=== PATIENT | female | born 1990 | race African-American/Black ===

== ENCOUNTER 2018-08-01 21:13 | Emergency (ER) | payer MEDICAID ==
[~2018-08-01] VITALS: Ht 165.1 cm; Wt 81.6 kg
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
[2018-08-01] MEDS ORDERED: CYCLOBENZAPRINE10 MG ORAL (22:31)
--- NOTE | 2018-08-01 22:31 | Emergency Room Report ---
History of Present Illness General Chief Complaint: Back Injury Source: Patient Present Illness HPI Been taking ibuprofen without much relief.28-year-old female presented after increased low back pain. Patient reports having bilateral back pain which began after living lifting boxes at work. She denies any trauma. She reports having radicular symptoms. She has been urinating normally. She denies any dysuria or hematuria. Patient states she is currently on her menses. She denies having any intercourse. She denies any . Allergies: Coded Allergies: No Known Allergies (Unverified , 08/01/18) Patient History Past Medical History: see triage record Last Menstrual Period: now Now: No Reviewed Nursing Documentation: PMH: Agreed; PSxH: Agreed Nursing Documentation-PMH Hx Hypertension: Yes Review of Systems All Other Systems: negative except mentioned in HPI Physical Exam Vital Signs Date Time Temp Pulse Resp B/P (MAP) Pulse Ox O2 Delivery O2 Flow Rate FiO2 08/01/18 22:09 98.4 86 20 104/78 98 Room Air General Appearance: well appearing, no apparent distress, alert, GCS 15 Head: normocephalic, atraumatic ENT: hearing grossly normal, normal voice Neck: full range of motion, supple Respiratory: lungs clear, no respiratory distress, speaking full sentences Cardiovascular #1: normal inspection Gastrointestinal: normal inspection Musculoskeletal: normal inspection, back normal, digits/nails normal, decreased range of mation - back with muscle spasm Neurologic: normal inspection, alert, oriented x3, responsive, normal gait Psychiatric: mood/affect normal Skin: no rash Medical Decision Making Diagnostic Impression: Primary Impression: Muscle strain ER Course Patient presented for back pain. Differential diagnosis included but was not limited to herniated disc, cauda equina syndrome, abdominal aortic aneurysm, perforated ulcer, spinal epidural abscess, spinal stenosis, lumbar fracture, metastatic lesion, pyelonephritis. Patient has a benign exam and does not appear to require any further imaging or laboratory testing at this time. Patient given prescription for muscle relaxants. She is advised to continue on nonsteroidal anti-inflammatory medications. She is advised to return if she began having fever worsening pain and numbness or weakness or other concerns. Last Vital Signs Date Time Temp Pulse Resp B/P (MAP) Pulse Ox O2 Delivery O2 Flow Rate FiO2 08/01/18 22:09 98.4 86 20 104/78 98 Room Air Status: improved Disposition: HOME, SELF-CARE Condition: Stable Will Nunez MD Aug 01, 2018 22:31
[2018-08-01 22:38] VITALS: BP 104/78
[2018-08-01] MEDS ORDERED: Ketorolac 60mg Inj IM ONE (22:45)
[2018-08-01 22:52] VITALS: BP 110/78
--- NOTE | 2018-08-01 22:53 | NUR ---
ER DISCHARGE NOTE: Patient is cleared to be discharged per ERMD, pt is aox4, on room air, with stable vital signs. pt was given dc and prescription instructions, pt was able to verbalize understanding, pt id band removed without complications. pt is able to ambulate with steady gait. pt took all belongings.
[2018-08-01 23:07] LABS: APPEARANCE,URINE VERY CLOUDY; BILIRUBIN, URINE NEGATIVE (NEGATIVE); COLOR,URINE PALE YELLOW; GLUCOSE, URINE (UA) NEGATIVE (NEGATIVE); KETONES,URINE NEGATIVE (NEGATIVE); LEUKOCYTE ESTERASE ,URINE NEGATIVE (NEGATIVE); NITRITE,URINE NEGATIVE (NEGATIVE); PH,URINE 8 (4.5-8.0); PROTEIN,URINE NEGATIVE (NEGATIVE); UROBILINOGEN,URINE NORMAL MG/DL (0.0-1.0)
== END 2018-08-01 22:58 | disposition home or self-care (01) ==
LOC: EMR 22:52
DX: S39.012A Strain of muscle, fascia and tendon of lower back, initial encounter (principal); X50.0XXA Overexertion from strenuous movement or load, initial encounter; Y92.89 Other specified places as the place of occurrence of the external cause; I10 Essential (primary) hypertension
CPT/HCPCS: 81003; 81025; 87086; 96372; 99283

== ENCOUNTER 2018-09-10 19:09 | Emergency (ER) | payer MEDICAID, OTHER ==
[~2018-09-10] VITALS: Ht 167.6 cm; Wt 81.6 kg
[~2018-09-10 19:09] MED LIST: CYCLOBENZAPRINE10 MG ORAL
[2018-09-10] MEDS ORDERED: NKM (19:24)
--- NOTE | 2018-09-10 19:30 | NUR ---
ED Nurse Note: Patient walked int oED c/o right knee pain, state that she slipped and fell at work, complains of 8/10 right knee pain, patietn is alert and oriented x4, ambulatory with a steady gait, VSS, patient denies any trauma
[2018-09-10] MEDS ORDERED: HYDROcodone/Acetamin 5/325 tab ORAL ONE (20:00)
--- NOTE | 2018-09-10 20:33 | Emergency Room Report ---
History of Present Illness General Chief Complaint: Lower Extremity Injury Source: Patient Present Illness HPI 28-year-old female presents to the emergency department complaining of 8 out of 10 in severity pain in the right knee as well as acute rectal pain status post mechanical trip and fall while at work. Patient reports that in the process of falling she attempted to grab a hold of a keg to stop her fall and believes that this may have caused some straining. Patient reports acute onset of rectal pain with some bright red blood per rectum. Patient denies hitting her head she denies loss of consciousness. Patient denies midline neck or back pain. Patient reports that she is able to minimally ambulate however walking and bending of the right knee exacerbates her pain. Patient denies having any relieving factors. Patient denies history of hemorrhoids. Denies constipation , diarrhea or abdominal pain. Denies numbness tingling or loss of sensation or gross motor movements of the extremities, incontinence of bowel or bladder. Denies CP, Palpitations, LOC, AMS, dizziness, Changes in Vision, weakness or a sudden severe headache. Denies hx of GI bleed or melena. Allergies: Coded Allergies: No Known Allergies (Unverified , 08/01/18) Patient History Past Medical History: see triage record Past Surgical History: none Pertinent Family History: none Last Menstrual Period: 08/25/2018 Now: No Reviewed Nursing Documentation: PMH: Agreed; PSxH: Agreed Nursing Documentation-PMH Past Medical History: No History, Except For Hx Hypertension: Yes Review of Systems All Other Systems: negative except mentioned in HPI Physical Exam Vital Signs Date Time Temp Pulse Resp B/P (MAP) Pulse Ox O2 Delivery O2 Flow Rate FiO2 09/10/18 19:21 98.6 123 16 158/105 99 Room Air Sp02 EP Interpretation: reviewed, normal General Appearance: alert, GCS 15, non-toxic, moderate distress Head: normocephalic, atraumatic Eyes: bilateral eye normal inspection, bilateral eye PERRL ENT: hearing grossly normal, normal voice Neck: full range of motion Respiratory: chest non-tender, lungs clear, normal breath sounds, speaking full sentences Cardiovascular #1: regular rate, rhythm, normal capillary refill Cardiovascular #2: 2+ dorsalis pedis (R) - post tibial. Rectal: hemorrhoids - bleeding hemorrhoid in the 12 o 'clock position. Musculoskeletal: back normal, gait/station normal - compensatory gait favoring right leg. , normal range of motion, tender - TTP to the anterior right knee, no increased laxity, some palpable swelling, no bruising, open wounds or obvious deformity noted. negative anterior drawer sign. Neurologic: alert, oriented x3, responsive, motor strength/tone normal, sensory intact, speech normal, grossly normal Psychiatric: judgement/insight normal Skin: normal color, no rash, warm/dry, well hydrated Medical Decision Making PA Attestation Dr. Cruz is my supervising Physician whom patient management has been discussed with. Diagnostic Impression: Primary Impression: Right knee sprain Qualified Codes: S83.91XA - Sprain of unspecified site of right knee, initial encounter Additional Impression: Hemorrhoid Qualified Codes: K64.9 - Unspecified hemorrhoids ER Course 28-year-old female presents to the emergency department complaining of 8 out of 10 in severity pain in the right knee as well as acute rectal pain status post mechanical trip and fall while at work. Patient reports that in the process of falling she attempted to grab a hold of a keg to stop her fall and believes that this may have caused some straining. Patient reports acute onset of rectal pain with some bright red blood per rectum. Patient denies hitting her head she denies loss of consciousness. Patient denies midline neck or back pain. Patient reports that she is able to minimally ambulate however walking and bending of the right knee exacerbates her pain. Patient denies having any relieving factors. Patient denies history of hemorrhoids. Denies constipation , diarrhea or abdominal pain. Denies numbness tingling or loss of sensation or gross motor movements of the extremities, incontinence of bowel or bladder. Denies CP, Palpitations, LOC, AMS, dizziness, Changes in Vision, weakness or a sudden severe headache. Denies hx of GI bleed or melena. Ddx considered but are not limited to Fracture, dislocation, contusion, Sprain/ Strain/Spasm,hemorrhoid, insect bite, cellulitis, abscess Vital signs: are WNL, pt. is afebrile H&PE are most consistent with musculoskeletal injury will perform imaging to r/ o fractures/dislocations. - hemorrhoid also noted with some acute bleeding- small amt. ORDERS: - X-ray Right knee 3 views - negative for fx, Dislocation, or significant soft tissue injury, per preliminary read in ED, and signed by BOOGIE العلي , my supervising physician has reviewed, and agrees with my interpretation. ED INTERVENTIONS: - [place] PO -Jose Elias wrap applied by field service tech. Pt. remains neurovascularly intact. -Patient is provided with crutches and instructed on their use -D/w pt. hemorrhoid management including topical medications and hot sitz baths. -I do not identify an emergent condition at this time. With current presentation , pt. is stable for close outpatient follow up and conservative treatment. D/ w pt. to return promptly to ED with worsening or new symptoms.- Pt. verbalizes' understanding and agreement with proposed treatment plan. DISCHARGE: At this time pt. is stable for d/c to home. Will provide printed patient care instructions, and any necessary prescriptions. Care plan and follow up instructions have been discussed with the patient prior to discharge. Other X-Ray Diagnostic Results Other X-Ray Diagnostic Results : X-Ray ordered: Right knee # of Views/Limited Vs Complete: 3 View Indication: Pain EP Interpretation: Yes BOOGIE Xray: Interpretation reviewed, by supervising MD, and agrees with findings. Interpretation: no dislocation, no soft tissue swelling, no fractures Impression: No acute disease Electronically Signed by: Pamella العلي PA-C Last Vital Signs Date Time Temp Pulse Resp B/P (MAP) Pulse Ox O2 Delivery O2 Flow Rate FiO2 09/10/18 19:21 98.6 123 16 158/105 99 Room Air Status: improved Disposition: HOME, SELF-CARE Condition: Stable Scripts Docusate Sodium* (COLACE*) 100 Mg Capsule 100 MG ORAL THREE TIMES A DAY, #30 CAP Prov: Pamella العلي 09/10/18 Ibuprofen* (MOTRIN*) 600 Mg Tablet 600 MG ORAL THREE TIMES A DAY, #30 TAB 0 Refills Prov: Pamella العلي 09/10/18 Lidocaine (Lidocaine) 5 Gm Cream..g. 1 APPLIC TP Q6HR for pain, #5 GM Prov: Pamella العلي 09/10/18 Hydrocortisone Hc 2.5% Cream (ANUSOL-HC 2.5% CREAM) Y Cr 1 APPLIC RC Q6HR, #30 GM Prov: Pamella العلي 09/10/18 Referrals: NOT CHOSEN [facility]/,REFERRING (PCP) Departure Forms: Return to Work Return to Work Date: Sep 14, 2018 Work Restrictions: No Heavy Lifting, No Prolonged Standing Other Restrictions: May return Sooner if Symptoms have resolved. Return to Full Activity: Sep 17, 2018 Patient Instructions: Hemorrhoids, [id number] Additional Instructions: Take medications as directed. Follow up with a Primary Care Provider in 3-5 days, even if your symptoms have resolved. --Please review list of primary care clinics, if you do not already have a primary care provider Return sooner to ED if new symptoms occur, or current symptoms become worse. - Please note that this Emergency Department Report was dictated using [employer] hand technology software, occasionally this can lead to erroneous entry secondary to interpretation by the dictation equipment. Pamella العلي Sep 10, 2018 20:33
[2018-09-10 20:35] VITALS: BP 138/85
[2018-09-10] MEDS ORDERED: COLACE100 MG ORAL (20:35)
[2018-09-10] MEDS ORDERED: ANUSOL-HC30 GM RC (20:35)
[2018-09-10] MEDS ORDERED: LIDOCAINE5 GM TP (20:35)
[2018-09-10] MEDS ORDERED: IBUPROFEN600 MG ORAL (20:35)
--- NOTE | 2018-09-11 12:51 | Diagnostic Imaging Report ---
Indication: Right knee pain Technique: 3 views of the right knee Comparison: None Findings: No acute fractures. No dislocations. The joint spaces are preserved Impression: Negative
== END 2018-09-10 20:35 | disposition home or self-care (01) ==
LOC: EMR 20:16
DX: S83.91XA Sprain of unspecified site of right knee, initial encounter (principal); K64.9 Unspecified hemorrhoids; I10 Essential (primary) hypertension; W01.0XXA Fall on same level from slipping, tripping and stumbling without subsequent striking against object, initial encounter; Y92.9 Unspecified place or not applicable; Y99.0 Civilian activity done for income or pay
CPT/HCPCS: 99283

== ENCOUNTER 2018-10-16 11:59 | Emergency (ER) | payer MEDICAID, OTHER ==
[~2018-10-16] VITALS: Ht 167.6 cm; Wt 81.6 kg
[~2018-10-16 11:59] MED LIST changes: +ANUSOL-HC30 GM RC; +COLACE100 MG ORAL; +IBUPROFEN600 MG ORAL; +LIDOCAINE5 GM TP; +NKM
--- NOTE | 2018-10-16 12:18 | NUR ---
ED Nurse Note: PT FROM HOME CAME IN DUE TO ABD.PAIN WITH N/V/D STARTED 2 DAYS AGO. PT ALSO REPORTS DECREASED APPETITE AND BEING UNABLE TO TOLERATE FOOD INTAKE AND TAKE SMALL SIPS OF WATER. PT IS AAO X4, AMBULATORY WITH NON LABORED BREATHING.
[2018-10-16] MEDS ORDERED: Dicyclomine HCl 10mg/5ml oral soln ORAL ONE (12:45)
[2018-10-16] MEDS ORDERED: DICYCLOMINE HCL10 MG ORAL (12:59)
[2018-10-16] MEDS ORDERED: ZOFRAN4 MG ORAL (12:59)
--- NOTE | 2018-10-16 13:01 | NUR ---
ED Nurse Note: PT LAYING PEACEFULLY IN BED IN NAD. AOX4. PRESCRIPTIONS AND DISCHARGE PAPERWORK EXPLAINED TO PT. PT VERBALIZES UNDERSTANDING AND ALL QUESTIONS ANSWERED. PRESCRIPTIONS SENT ELECTRONICALLY. DISCHARGE PAPERWORK GIVEN TO PT AND ID WRISTBAND REMOVED. PT WALKED OUT OF ER WITH STEADY GAIT AND ALL BELONGINGS.
[2018-10-16 13:02] VITALS: BP 126/82
--- NOTE | 2018-10-17 15:19 | Emergency Room Report ---
History of Present Illness General Chief Complaint: Nausea, Vomiting, and Diarrhea Source: Patient Present Illness HPI Patient is a 28-year-old female presented after increased nausea vomiting and diarrhea. Patient had onset of symptoms approximate 2 days ago. She reports having generalized abdominal discomfort. She denies being . She states is currently on her menses. She reports having multiple episodes of nonbilious, nonbloody vomiting. She had not been having any fever.Patient denies any dizziness or lightheadedness. She denies any recent travel. 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 She denies any localized abdominal pain. Allergies: Coded Allergies: No Known Allergies (Unverified , 10/16/18) Patient History Past Medical History: see triage record Last Menstrual Period: 10/09/18 Now: No Reviewed Nursing Documentation: PMH: Agreed; PSxH: Agreed Nursing Documentation-PMH Past Medical History: No Stated History Hx Hypertension: Yes Review of Systems All Other Systems: negative except mentioned in HPI Physical Exam Vital Signs Date Time Temp Pulse Resp B/P (MAP) Pulse Ox O2 Delivery O2 Flow Rate FiO2 10/16/18 12:08 98.2 104 16 132/85 (101) 98 Room Air Sp02 EP Interpretation: reviewed, normal General Appearance: normal inspection, well appearing, no apparent distress, alert, GCS 15 Head: atraumatic ENT: normal ENT inspection, hearing grossly normal, normal voice Neck: normal inspection, full range of motion, supple, no bony tend Respiratory: normal inspection, lungs clear, normal breath sounds, no respiratory distress, no retraction, no wheezing Cardiovascular #1: regular rate, rhythm, no edema Gastrointestinal: normal inspection, normal bowel sounds, non tender, soft, no guarding, no hernia Genitourinary: no CVA tenderness Musculoskeletal: normal inspection, back normal, normal range of motion Neurologic: normal inspection, alert, oriented x3, responsive, science writer III-XII nml as tested, speech normal Psychiatric: normal inspection, judgement/insight normal, mood/affect normal Skin: normal inspection, normal color, no rash Medical Decision Making Diagnostic Impression: Primary Impression: Gastroenteritis ER Course Patient presented for vomiting and diarrhea. Differential diagnosis include was not limited to gastroenteritis, food poisoning, bowel obstruction among others. Patient has a benign exam and does not appear to require any further imaging or laboratory testing at this time patient noted to have a benign abdominal exam without any focal tenderness.. She was given Zofran with improvement her symptoms. Patient states she felt better and wanted to go home. Patient was able to tolerate oral fluids. Patient is advised to recheck with her primary care physician for reevaluation. She is advised to remain off work for 2 days. Last Vital Signs Date Time Temp Pulse Resp B/P (MAP) Pulse Ox O2 Delivery O2 Flow Rate FiO2 10/16/18 13:02 98.3 94 17 126/82 99 Room Air Status: improved Disposition: HOME, SELF-CARE Condition: Stable Scripts Dicyclomine Hcl* (DICYCLOMINE HCL*) 10 Mg Capsule 10 MG ORAL QID, #20 CAP Prov: Will Nunez MD 10/16/18 Ondansetron (Zofran) 4 Mg Tablet 4 MG ORAL Q6H PRN for Nausea & Vomiting, #30 TAB 0 Refills Prov: Will Nunez MD 10/16/18 Referrals: [facility],REFERRING (PCP) Departure Forms: Return to Work Return to Work in (Days): 2 Patient Instructions: Viral Gastroenteritis, Adult Will Nunez MD October 17, 2018 15:19
== END 2018-10-16 13:03 | disposition home or self-care (01) ==
LOC: EMR 12:40
DX: K52.9 Noninfective gastroenteritis and colitis, unspecified (principal); I10 Essential (primary) hypertension
CPT/HCPCS: 99282

== ENCOUNTER 2019-01-10 10:04 | Emergency (ER) | payer MEDICAID ==
[~2019-01-10] VITALS: Ht 165.1 cm; Wt 77.1 kg
[~2019-01-10 10:04] MED LIST changes: +DICYCLOMINE HCL10 MG ORAL; +ZOFRAN4 MG ORAL
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
[2019-01-10 11:05] VITALS: BP 130/88
--- NOTE | 2019-01-10 11:05 | NUR ---
ED Nurse Note: patient walked out of ED with all of her belongings, patient reports that she cannot stay here any longer she needs to go to her work. patient states verbalized understanding that she is leaving ED without Dr's formal discharge, patient left in stable condition. No IV started on the patient. pt is aox4, on room air
--- NOTE | 2019-01-10 11:26 | Diagnostic Imaging Report ---
Indication: Pain and trauma Technique: 3 views of the left knee Comparison: None Findings: No acute fractures. No dislocations. Joint spaces are preserved. Impression: Negative
== END 2019-01-10 12:00 | disposition left against medical advice (07) ==
LOC: EMR 11:10
DX: M25.562 Pain in left knee (principal)
CPT/HCPCS: 99283

== ENCOUNTER 2019-05-13 15:43 | Emergency (ER) | payer SELFPAY ==
[~2019-05-13] VITALS: Ht 167.6 cm; Wt 77.1 kg
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
--- NOTE | 2019-05-13 16:13 | NUR ---
ED Nurse Note: X ray being done at bedside.
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
[2019-05-13 17:41] VITALS: BP 128/80
--- NOTE | 2019-05-13 18:07 | Diagnostic Imaging Report ---
EXAM: XR Left Knee, 3 Views CLINICAL HISTORY: PAIN TECHNIQUE: Three views of the left knee. COMPARISON: No relevant prior studies available. FINDINGS: Bones/joints: No acute fracture or malalignment. Soft tissues: No significant abnormality. IMPRESSION: No acute fracture or malalignment.
== END 2019-05-13 17:41 | disposition home or self-care (01) ==
LOC: EMR 16:05
DX: M25.562 Pain in left knee (principal); I10 Essential (primary) hypertension; Z87.891 Personal history of nicotine dependence
CPT/HCPCS: 99283

== ENCOUNTER 2020-03-02 17:52 | Emergency (ER) | payer SELFPAY ==
[~2020-03-02] VITALS: Ht 165.1 cm; Wt 77.1 kg
--- NOTE | 2020-03-02 18:05 | NUR ---
ED Nurse Note: Patient from home and walked in to ER due to feeling of fatigue, muscle aches, diarrhea and skin itching for a couple of weeks. States coughing is getting better. Pt also c/o burning sensation when urinating. Pt tested negative for covid less than 2 weeks. Patient presented calm, denyed any drug use, VSS at this time.
--- NOTE | 2020-03-02 18:08 | NUR ---
ED Nurse Note: IV line was established on left forearm 20 ga, blood and urine specimen sent to lab
[2020-03-02 18:10] VITALS: BP 140/88
[2020-03-02 18:49] LABS: EOSINOPHILS % (AUTO) 2.2 % (0.0-3.0); HEMATOCRIT 34.8 % (37.0-47.0); HEMOGLOBIN 10.5 G/DL (12.0-16.0); LYMPHOCYTES % (AUTO) 46.8 % (20.0-45.0); MEAN CORPUSCULAR VOLUME 67 FL (80-99); MONOCYTES % (AUTO) 11.5 % (1.0-10.0); NEUTROPHILS % (AUTO) 38.5 % (45.0-75.0); PLATELET COUNT 310 K/UL (150-450); RED BLOOD COUNT 5.17 M/UL (4.20-5.40); RED CELL DISTRIBUTION WIDTH 16.5 % (11.6-14.8); WHITE BLOOD COUNT 3.9 K/UL (4.8-10.8)
[2020-03-02 18:51] LABS: BILIRUBIN, URINE NEGATIVE (NEGATIVE); COLOR,URINE PALE YELLOW; GLUCOSE, URINE (UA) NEGATIVE (NEGATIVE); KETONES,URINE NEGATIVE (NEGATIVE); LEUKOCYTE ESTERASE ,URINE NEGATIVE (NEGATIVE); NITRITE,URINE NEGATIVE (NEGATIVE); PH,URINE 5 (4.5-8.0); PROTEIN,URINE NEGATIVE (NEGATIVE); UROBILINOGEN,URINE NORMAL MG/DL (0.0-1.0)
[2020-03-02 18:56] LABS: APPEARANCE,URINE CLEAR
[2020-03-02 19:03] LABS: ANION GAP 11 mmol/L (5-15); BLOOD UREA NITROGEN 12 mg/dL (7-18); CALCIUM 10.5 MG/DL (8.5-10.1); CARBON DIOXIDE 24 MMOL/L (21-32); CHLORIDE 102 MMOL/L (98-107); CREATININE 0.8 MG/DL (0.55-1.30); SODIUM 136 MMOL/L (136-145)
--- NOTE | 2020-03-02 19:05 | NUR ---
ED Nurse Note: Report received from DODIE DELCID Patient alert and awake sitting on the side of bed
[2020-03-02 19:08] LABS: ALANINE AMINOTRANSFERASE 27 U/L (12-78); ALBUMIN 3.6 G/DL (3.4-5.0); ALBUMIN/GLOBULIN RATIO 0.7 (1.0-2.7); ALKALINE PHOSPHATASE 149 U/L (46-116); ASPARTATE AMINO TRANSFERASE 31 U/L (15-37); BILIRUBIN,TOTAL 0.1 MG/DL (0.2-1.0)
--- NOTE | 2020-03-02 19:25 | Emergency Room Report ---
History of Present Illness General Chief Complaint: Flu Like Symptoms Source: Patient, Medical Record Present Illness HPI 30-year-old female with no significant medical history here complaining of 2 weeks of feeling fatigued, few bouts of nonbloody diarrhea that started 2 days ago, feeling nauseated however denies any vomiting, generalized fatigue. Patient also complains of extremely pruritic rash in pubic area x2 weeks. Reports that she has had 2 mine foreman coming into the house and saying that there are no parasites. Also denies any drug use and tobacco smoke. Denies any alcohol intake. Denies any increased vaginal bleeding, urinary frequency and urgency. Has not taken medication for symptom relief. 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 COVID-19 Screening: Negative COVID-19 COVID-19 Testing Source: 2 weeks ago Patient History Past Medical History: see triage record Past Surgical History: none Pertinent Family History: none Now: No Immunizations: UTD Reviewed Nursing Documentation: PMH: Agreed; PSxH: Agreed Nursing Documentation-PMH Past Medical History: No History, Except For Hx Hypertension: Yes Review of Systems All Other Systems: negative except mentioned in HPI Physical Exam Vital Signs Date Time Temp Pulse Resp B/P (MAP) Pulse Ox O2 Delivery O2 Flow Rate FiO2 03/02/20 17:59 98.8 108 18 140/88 (105) 98 Room Air Sp02 EP Interpretation: reviewed, normal General Appearance: no apparent distress, alert, GCS 15, non-toxic Head: normocephalic Eyes: bilateral eye normal inspection, bilateral eye PERRL ENT: hearing grossly normal, normal pharynx, no angioedema, normal voice Neck: full range of motion, supple/symm/no masses Respiratory: chest non-tender, lungs clear, normal breath sounds, speaking full sentences Cardiovascular #1: regular rate, rhythm, no edema, no murmur Cardiovascular #2: 2+ carotid (R), 2+ carotid (L), 2+ radial (R), 2+ radial (L), 2+ dorsalis pedis (R), 2+ dorsalis pedis (L) Gastrointestinal: normal bowel sounds, non tender, soft, non-distended, no guarding, no rebound Genitourinary: no CVA tenderness, other - Small macular rash noted..pubic area Musculoskeletal: back normal Neurologic: alert, motor strength/tone normal, oriented x3, sensory intact, responsive, speech normal Psychiatric: normal inspection, judgement/insight normal Skin: rash - macular pubic area Lymphatic: no adenopathy Medical Decision Making PA Attestation All my diagnosis and treatment plans were reviewed ad discussed with my supervising physician Dr. Guido Diagnostic Impression: Primary Impression: Pubic lice Additional Impression: Fatigue ER Course 30-year-old female with no significant medical history here complaining of 2 weeks of feeling fatigued, few bouts of nonbloody diarrhea that started 2 days ago, feeling nauseated however denies any vomiting, generalized fatigue. Patient also complains of extremely pruritic rash in pubic area x2 weeks. Reports that she has had 2 mine foreman coming into the house and saying that there are no parasites. Also denies any drug use and tobacco smoke. Denies any alcohol intake. Denies any increased vaginal bleeding, urinary frequency and urgency. Has not taken medication for symptom relief. Ddx considered but are not limited to: Anemia, electrolyte abnormality, generalized fatigue, Vital signs: are WNL, pt. is afebrile H&PE are most consistent with, pubic lice ORDERS: CMP, UA, urine test, chest x-ray, permethrin ED INTERVENTIONS: NS bolus DISCHARGE: At this time pt. is stable for d/c to home. Will provide printed patient care instructions, and any necessary prescriptions. Care plan and follow up instructions have been discussed with the patient prior to discharge. Patient follow with primary care provider for further evaluation, if worsening symptoms return to the emergency room Chest X-Ray Diagnostic Results Chest X-Ray Diagnostic Results : Chest X-Ray Ordered: Yes # of Views/Limited/Complete: 1 View Indication: Other EP Interpretation: Yes PA Xray: Interpretation reviewed, by supervising MD, and agrees with findings. Interpretation: no consolidation, no effusion, no pneumothorax Impression: No acute disease Electronically Signed by: Александр Phillips PA-C Last Vital Signs Date Time Temp Pulse Resp B/P (MAP) Pulse Ox O2 Delivery O2 Flow Rate FiO2 03/02/20 18:10 108 18 Room Air 03/02/20 18:10 98.8 140/88 98 Disposition: HOME, SELF-CARE Condition: Stable Scripts Permethrin* (ELIMITE*) 60 Gm Cream..g. 1 APPLIC TOPIC ONCE, #60 GM 0 Refills Apply cream from head to toe; leave on for 8-14 hours before washing off with water; may reapply in 1 week if live mites appear. Prov: Александр Davis 03/02/20 Referrals: NOT CHOSEN IPA/MD,REFERRING (PCP) Patient Instructions: Fatigue, Lice, Adult Additional Instructions: Take medication as directed, follow-up with primary care provider, if worsening symptoms return to the emergency room Александр Davis Mar 02, 2020 19:25
[2020-03-02] MEDS ORDERED: PERMETHRIN60 GM TOPIC (19:26)
[2020-03-02 19:45] VITALS: BP 140/88
--- NOTE | 2020-03-02 19:45 | NUR ---
ER DISCHARGE NOTE: Patient is cleared to be discharged per ERMD, pt is aox4, on room air, with stable vital signs. pt was given dc and prescription instructions, pt was able to verbalize understanding, pt id band and iv site removed without complications. pt is able to ambulate with steady gait. pt took all belongings.
--- NOTE | 2020-03-03 14:58 | Diagnostic Imaging Report ---
Indication: Shortness of breath Technique: One view of the chest Comparison: none Findings: Lungs and pleural spaces are clear. Heart size is normal. Impression: No acute process
== END 2020-03-02 19:46 | disposition home or self-care (01) ==
LOC: EMR 18:00
DX: B85.3 Phthiriasis (principal); R53.83 Other fatigue; R19.7 Diarrhea, unspecified; I10 Essential (primary) hypertension; R06.02 Shortness of breath
CPT/HCPCS: 36415; 71045; 80053; 81003; 81025; 85025; 96361; 96374; 96375; 99284; J2405; J7030; S0028